=== PATIENT | male | born 1980 | race Two or more races ===

== ENCOUNTER 2022-07-20 17:04 | Emergency (ER) | payer MEDICAID, OTHER ==
[~2022-07-20] VITALS: Ht 170.2 cm; Wt 75.0 kg
[2022-07-20] MEDS ORDERED: HYDROcodone-ACET 10/325MG TAB PO ONE (18:00)
[2022-07-20] MEDS ORDERED: HYDR-4072 PO (18:08)
[2022-07-20] MEDS ORDERED: PERCOT PO (18:09)
[2022-07-20 18:22] VITALS: BP 107/62
[2022-07-21] MEDS ORDERED: PERCOT PO (17:19)
== END 2022-07-20 18:24 | disposition home or self-care (01) ==
LOC: ER 17:08
DX: S62.633A Displaced fracture of distal phalanx of left middle finger, initial encounter for closed fracture (principal); W23.0XXA Caught, crushed, jammed, or pinched between moving objects, initial encounter; Y93.89 Activity, other specified; Y92.89 Other specified places as the place of occurrence of the external cause; Y99.8 Other external cause status
CPT/HCPCS: 29130; 73140

== ENCOUNTER → 2022-07-21 | Emergency (ER) | payer MEDICAID ==
[~2022-07-21] VITALS: Ht 170.2 cm; Wt 72.7 kg
[~2022-07-21] MED LIST: HYDR-4072 PO; PERCOT PO
[2022-07-21 17:10] VITALS: BP 113/51
== END | disposition left against medical advice (07) ==
LOC: ER 16:42
DX: M79.642 Pain in left hand (principal); Z53.21 Procedure and treatment not carried out due to patient leaving prior to being seen by health care provider